=== PATIENT | female | born 1995 | race Caucasian/White ===

== ENCOUNTER 2018-08-29 10:56 | Emergency (ER) | payer MEDICAID, SELFPAY ==
[2018-08-29] VITALS (34 sets, daily range): BP systolic 103–136; BP diastolic 48–75; PULSE 59–95; RESP 9–18; TEMP 36.5; O2SAT 95–100
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
[2018-08-29] MEDS: Normal Saline 1,000 ML 1000 ML IV (12:00)
[2018-08-29 12:02] LABS: Abs Immature Grans 0.15 k/cumm (0.0-0.09); Absolute Basophil Count 0.02 k/cumm (0.0-0.2); Absolute Eosinophil Count 0.08 k/cumm (0.0-0.7); Absolute Lymphocyte Count 0.88 k/cumm (1.2-3.4); Absolute Monocyte Count 1.38 k/cumm (0.11-0.7); Absolute Neutrophil Count 17.42 k/cumm (1.2-6.7); Basophils % 0.1; Eosinophils % 0.4; HCT 41.9 % (36.0-46.0); HGB 14.4 g/dL (12.0-15.5); Immature Grans % 0.8; Lymphocytes % 4.4; Mean Corp. HGB Concentration 34.4 g/dL (32.0-36.0); Mean Corpuscular Hemoglobin 29.1 pg (27.0-33.0); Mean Corpuscular Volume 84.8 fL (80-95); Mean Platelet Volume 10.5 fL (8.0-11.0); Monocytes % 6.9; Neutrophils % 87.4; Platelet Count 209 x1000/uL (130-400); RBC 4.94 m/cumm (4.00-5.20); RBC Distribution Width 13.4 % (11.7-14.6); White Blood Cell Count 19.93 k/cumm (4.4-10.8)
[2018-08-29] MEDS: fentaNYL 100 MCG/2 ML VIAL 50 MCG IVP (12:15)
[2018-08-29 12:20] LABS: ALT 38 U/L (12-78); AST 37 U/L (15-37); Albumin 4.1 g/dL (3.4-5.0); Alkaline Phosphatase 76 U/L (46-116); Anion Gap 9.9 mmol/L (3-11); BUN 8 mg/dL (7-18); Bilirubin, Total 0.6 mg/dL (0.2-1.0); CO2 27.1 mmol/L (21.0-32.0); CREATININE 0.68 mg/dL (0.55-1.02); Calcium 9.1 mg/dL (8.5-10.1); Chloride 103 mmol/L (98-107); Glucose 89 mg/dL (70-100); Magnesium 1.7 mg/dL (1.8-2.4); Potassium 3.3 mmol/L (3.5-5.1); Sodium 140 mmol/L (136-145)
[2018-08-29 12:21] LABS: Troponin I < 0.02 ng/mL (0.00-0.06)
[2018-08-29] MEDS: Ondansetron 4 MG/2 ML VIAL (12:45)
[2018-08-29] MEDS: Omnipaque 350 MG/ML 100 ML BTL IJ (14:03)
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
--- NOTE | 2018-08-29 14:31 | NUR.NOTE ---
Pt. returned from CT scan, pt. noted to have removed her own CCollar, put back on by this RN and BLADO Sandoval. Pt. states pain and nausea are improved.
--- NOTE | 2018-08-29 14:35 | NUR.NOTE ---
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 Pt. is A/O x4, PERRLA, moving all extremities equal with equal strength and sensation.
--- NOTE | 2018-08-29 15:17 | NUR.NOTE ---
Pt. currently on bed lewis, tolerated well.
--- NOTE | 2018-08-29 15:28 | NUR.NOTE ---
Pt. transferred to [facility] at this time. Cervical remains in place, pt. remains neurological intact.
== END 2018-08-29 15:52 | disposition short-term general hospital (02) ==
PROVIDERS: Emergency Provider Physician Assistant
DX: S06.5X0A Traumatic subdural hemorrhage without loss of consciousness, initial encounter (principal); V43.52XA Car driver injured in collision with other type car in traffic accident, initial encounter; M25.561 Pain in right knee; S32.10XA Unspecified fracture of sacrum, initial encounter for closed fracture; S32.592A Other specified fracture of left pubis, initial encounter for closed fracture; S32.111A Minimally displaced Zone I fracture of sacrum, initial encounter for closed fracture; S80.01XA Contusion of right knee, initial encounter; S40.012A Contusion of left shoulder, initial encounter
CPT/HCPCS: 36415; 36416; 74177; 80053; 81025; 96361; 96374; 96375; 99285; 70450; 71260; 72125; 73564; 83735; 84484; 85025; J2405; J3010; J3490

== ENCOUNTER 2018-10-03 00:48 | Outpatient (CLI) | payer MEDICAID, SELFPAY ==
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
== END 2018-10-03 01:08 ==
PROVIDERS: PCP Family Medicine; Visit Provider Neurological Surgery
DX: S06.5X9D Traumatic subdural hemorrhage with loss of consciousness of unspecified duration, subsequent encounter (principal); G93.0 Cerebral cysts; J34.1 Cyst and mucocele of nose and nasal sinus
CPT/HCPCS: 70450

== ENCOUNTER 2018-11-07 15:09 | Outpatient (REF) | payer MEDICAID, SELFPAY ==
--- NOTE | 2018-11-07 14:45 | PAPFT_PTH ---
PATIENT: Aline Manley LOC: [facility] U#:[id number] AGE/SX: 23/F ROOM: RE11/07/[address]: SHARYN Ramirez : 1995 BED: DIS: 11/07/2018 SPEC #: [id number] RECD: 11/07/18 17:02 STATUS: [facility] VENTURA #: [id number] DERRELL: 11/07/18 14:[address]: Jacqueline Watkins DEPT: [facility] Cytology RECD BY: Brittany Vera ENTERED: 11/07/18 17:02 SP TYPE: PAPFT OTHR DR: Milagros Solorzano MD Tissues: 1 - CX/ENDOCX FOR PAP SMEARS Procedures: PAP THIN PREP/UVM Screening Comments: [id number]
== END 2018-11-07 15:29 ==
LOC: LBN 15:09
PROVIDERS: PCP Family Medicine; Visit Provider Nurse Practitioner Family
DX: Z12.4 Encounter for screening for malignant neoplasm of cervix (principal)
CPT/HCPCS: 88142

== ENCOUNTER 2019-10-02 20:02 | Emergency (ER) | payer MEDICAID, SELFPAY ==
[2019-10-02 20:07] VITALS: BP 130/62; PULSE 93; RESP 18; TEMP 36.7; O2SAT 97
--- NOTE | 2019-10-02 20:16 | W.ED.GENAD ---
Discharge Plan Disposition Patient Disposition: HOME Condition: Stable Discharge Details Chief Complaint: RespSymp Clinical Impression: Acute right otitis media Primary Care Provider: Milagros Solorzano ED Provider: Markell Woodruff Home Meds and New Rx's Prescriptions: New amoxicillin 500 mg tablet 500 mg PO BID Qty: 20 RF: 0 Continued etonogestrel-ethinyl estradiol [NuvaRing] 0.12-0.015 mg/24 hr ring 1 vag ring VG monthly Qty: 3 RF: 3 loratadine [Claritin] 10 mg tablet 10 mg PO DAILY PRNRF: 0 Discharge Instructions Instructions: Otitis Media (ED) Additional Instructions: if your symptoms are not improving by this week see your primary care provider take 600mg ibuprofen and 650mg tylenol every 6 hours for pain as needed if you feel more ill, have persistent high fevers or difficulty breathing return to the emergency department Stand Alone Forms: Work Release Medical Decision Making 24 yo female comes in with 2 days of sinus congestion, throat pain and right ear pain. Denies fevers, cough, dyspnea, recent travel, vomit, chest pain, abd pain, n/v. She is in no distress on exam with clear rhinorrhea, normal oropharynx, midline uvula with no pain over hyoid or restricted neck movements. Her left tm is normal but her right tm is red and bulging. Will start her on treatment for acute otitis media and advised to f/u with pcp if not better this week and return precautions given Differential Diagnosis Differential Diagnosis: uri, sinusitis, pharyngitis, aom HPI General Mode of arrival: ambulatory. Date/Time Provider Initiated Documentation: 10/02/19 20:12. Limitations to Documentation: no limitations. Information obtained by: patient. History of Present Illness 24 year old F presents to the emergency department with the chief complaint of ear pain, described as moderate, Quality is described as aching, Patient started experiencing this day(s) (2) and it has been constant. No relieving factors improve symptom(s), No exacerbating factors reported . Patient did receive the following treatments prior to arrival, none Related Data Home Medications Medication Instructions Recorded Confirmed etonogestrel 0.12 mg-ethinyl 1 vag ring VG monthly #3 each 11/07/18 10/02/19 estradiol 0.015 mg/24 hr vaginal ring amoxicillin 500 mg PO BID #20 tab 10/02/19 loratadine [Claritin] 10 mg PO DAILY PRN 10/02/19 10/02/19 Previous Rx's Medication Instructions Recorded etonogestrel 0.12 mg-ethinyl 1 vag ring VG monthly #3 each 11/07/18 estradiol 0.015 mg/24 hr vaginal ring amoxicillin 500 mg PO BID #20 tab 10/02/19 Allergies Allergy/AdvReac Type Severity Reaction Status Date / Time milk AdvReac upset Unverified 10/02/19 20:11 stomache latvian spring soap Allergy Intermediate Hives Uncoded 10/02/19 20:11 dial soap Allergy Skin Rash Uncoded 10/02/19 20:11 environmental Allergy runny Uncoded 10/02/19 20:11 nose/itching eyes General Stated Complaint: RespSymp TELMA: 4 Review of Systems All systems reviewed & are unremarkable except as noted in HPI and below Constitutional Constitutional: Denies fever(s) and Denies weakness Cardiovascular Cardiovascular: Denies dyspnea Respiratory Respiratory: Denies cough and Denies dyspnea Gastrointestinal Gastrointestinal: Denies abdominal pain, Denies nausea and Denies vomiting Musculoskeletal Musculoskeletal: Denies joint swelling Neurologic Neurologic: Denies weakness [facility] Social History Smoking/Tobacco Use Status: Former Tobacco Use Smokeless tobacco user: other (vap) Quit status: not considering quitting Counseling given: patient declined Alcohol Intake: current Alcohol Intake frequency: holidays/special occasions only Drug use: Occasionally Substance use type: marijuana Counseling given: No Do you feel safe at home: Yes Do you feel safe in your relationship?: Yes Exam Const General: no acute distress Orientation: alert HENMT Head: normal to inspection Ears: external ears normal General nose exam: external nose normal Mouth: moist mucous membranes Eyes General: appearance normal, both eyes and all related structures Neck Neck: normal visual inspection Resp Effort & Inspection: normal respiratory effort and able to speak in complete sentences Cardio Rate: regular rate Skin General skin exam: no rashes or lesions noted Neuro General: alert and oriented x3 Extrem General: normal to inspection Psych Mental Status: mental status grossly normal Course Vital Signs Vital signs: Vital Signs Temperature 36.7 C 10/02/19 20:07 Pulse 93 H 10/02/19 20:07 Respiratory Rate 18 10/02/19 20:07 Blood Pressure 130/62 10/02/19 20:07 Pulse Oximetry 97 10/02/19 20:07 Temperature 36.7 C 10/02/19 20:07 Temperature Source Skin 10/02/19 20:07 Pulse 93 H 10/02/19 20:07 Respiratory Rate 18 10/02/19 20:07 Respiratory Effort Non-Labored 10/02/19 20:10 Respiratory Depth Normal 10/02/19 20:10 Blood Pressure 130/62 10/02/19 20:07 Blood Pressure Position Sitting 10/02/19 20:07 Pulse Oximetry 97 10/02/19 20:07 Oxygen Delivery Method Room Air 10/02/19 20:07 Oxygen Flow Rate 0 10/02/19 20:07 Pain Level 4 10/02/19 20:07
[2019-10-02] MEDS: Amoxicillin 500 MG CAP PO (20:21)
== END 2019-10-02 20:30 | disposition home or self-care (01) ==
PROVIDERS: Emergency Provider Emergency Medicine; PCP Family Medicine
DX: H66.91 Otitis media, unspecified, right ear (principal)
CPT/HCPCS: 99283

== ENCOUNTER 2022-03-02 15:44 | Outpatient (REF) | payer MEDICAID, SELFPAY ==
--- NOTE | 2022-03-02 15:00 | PAPFT_PTH ---
PATIENT: Aline Manley LOC: [facility] U#:[id number] AGE/SX: 27/F ROOM: RE03/02/[address]: SHARYN Ramirez : 1995 BED: DIS: 03/02/2022 SPEC #: [id number] RECD: 03/02/22 16:50 STATUS: [facility]AN RENina #: [id number] DERRELL: 03/02/22 15:[address]: Jacqueline Watkins DEPT: [facility] Cytology RECD BY: Brittany Vear ENTERED: 03/02/22 16:50 SP TYPE: PAPFT FIDELIA DR: Jesica Hidalgo APRN Tissues: 1 - CX/ENDOCX FOR PAP SMEARS Procedures: PAP THIN PREP/UVM Screening Comments: [id number]
[2022-03-05 19:18] LABS: Chlamydia Result Negative (Negative); GC Result Negative (Negative)
== END 2022-03-02 15:45 | disposition home or self-care (01) ==
LOC: LBN 15:44
PROVIDERS: Visit Provider Nurse Practitioner Family
DX: Z11.3 Encounter for screening for infections with a predominantly sexual mode of transmission (principal); Z12.4 Encounter for screening for malignant neoplasm of cervix
CPT/HCPCS: 87491; 87591; 88142

== ENCOUNTER 2022-05-26 15:02 | Emergency (ER) | payer MEDICAID, SELFPAY ==
[2022-05-26 15:42] VITALS: BP 117/63; PULSE 68; TEMP 36.7; O2SAT 99
--- NOTE | 2022-05-26 15:53 | ED.GENADUL_ITS ---
Discharge Plan Disposition Patient Disposition: HOME Condition: Good Discharge Details Clinical Impression: Acute foot pain Primary Care Provider: Jesica Hidalgo ED Provider: Anitha Sandoval Home Meds and New Rx's Prescriptions: Continued pren vit comb.1-iron cb-FA-DSS 90-1-50 mg Tablet PO acetaminophen 325 mg Tablet 650 mg PO PRN PRN loratadine [Claritin] 10 mg tablet 10 mg PO DAILY PRN Discharge Instructions Instructions: Arthralgia (ED) Additional Instructions: Your exam is reassuring here today. Concerned this could be sprain or irritation from your shoe. Please try to wear shoes that do not rub on this area. Encourage rest, ice, elevation. Tylenol and/or Ibuprofen as needed for discomfort. Please follow up with primary care in 2 weeks for reevaluation. If you develop fevers/chills, increased pain, redness, numbness or other new/worsening symptoms please seek care urgently once again. Stand Alone Forms: Work Release Referrals: Jesica Hidalgo, DOMESTIC HOUSEKEEPER [Primary Care Provider] - Discharge Data Discharge Date/Time-TO BE ENTERED AT DEPARTURE: 05/26/22 16:36 Medical Decision Making Patient is a pleasant 27 year old female presenting today with c/c of right foot pain. States pain began 2 days ago after long hours on her feet at work. 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 Denies trauma. Did not fall or drop anything on the foot. STates that she sprained this foot about 10 years ago, is wondering if it could be arthritis. Also reports that she has been wearing [employer]ko shoes which may be contriburing. Denies radiation of pain. No fevers/chills. No N/T. On exam, patient appears nontoxic. Exam of RLE reveals it to be neurovascularly intact. No objective evidence of trauma. No swelling or discoloration. Patient felt that there was an area of ecchymosis but this looks the same as contralateral side, pt is quite pale and vacular markings are easily identified. She is point tender at the proximal, lateral aspect of the foot, indicating a 1cm area at the distal aspect of the ATFL. FUll ROM of foot, toes, ankle. No calf pain. No midfoot pain. No pain over the proximal 5th metatarsal. With no recent trauma and no worrisome findings on PE, I advised that she likely has recurrent sprain or irritation from her shoe. Encouraged RICE, NSAID, APAP. Will give work note at patient request. Advised f/u with PCP in 2 wks for reevaluation. We discussed imaging but as she does not have hx or PE findings to suggest fx or dislocation, will hold off for now, which patient is in agreement with. Return precautions discussed. All of her questions and concerns were addressed, she is in agreement with this plan. HPI General Date/Time Provider Initiated Documentation: 05/26/22 15:53 . Limitations to Documentation: no limitations . Information obtained by: patient and RN notes reviewed . History of Present Illness 27 year old F presents to the emergency department with the chief complaint of right foot pain, described as moderate, with intensity rated at 5. Quality is described as aching, and is localized to the right and lower extremity. Patient started experiencing this day(s) and it has been constant. Immobilization improves symptom(s), Movement worsens symptoms . Patient notes no other symptoms.. Patient did receive the following treatments prior to arrival, none Related Data Home Medications Medication Instructions Recorded Confirmed loratadine 10 mg tablet (Claritin) 10 mg PO DAILY PRN 10/02/19 05/26/22 acetaminophen 325 mg tablet 650 mg PO PRN PRN 05/26/22 05/26/22 pren vit comb.1-iron cb-FA-DSS 90 tab PO 05/26/22 mg-1 mg-50 mg tablet Allergies Allergy/AdvReac Type Severity Reaction Status Date / Time milk AdvReac upset Verified 05/26/22 15:46 stomache pinky spring soap Allergy Intermediate Hives Uncoded 05/26/22 15:46 dial soap Allergy Skin Rash Uncoded 05/26/22 15:46 environmental Allergy runny Uncoded 05/26/22 15:46 nose/itching eyes General Stated Complaint: Orthopedic TELMA: 4 Review of Systems Constitutional Constitutional: Reports as per HPI, Denies fever(s) and Denies weakness Cardiovascular Cardiovascular: Reports as per HPI Respiratory Respiratory: Reports as per HPI Musculoskeletal Musculoskeletal: Reports as per HPI and Denies tingling Integumentary/Breasts Skin/Breast: Reports as per HPI, Denies rash and Denies wounds Neurologic Neurologic: Reports as per HPI, Denies tingling, Denies paresthesias and Denies weakness PFSH All Active Problems (Updated 05/26/22 @ 16:06 by BALDO Holly) Acute foot pain (Acute) Chronic pain syndrome (Chronic) Allergic rhinitis, unspecified (Acute) Attention deficit hyperactivity disorder, combined type (Acute) Contraception (Acute 11/13/16) Idiopathic scoliosis (Acute) Family History Mother ADHD Social History Smoking/Tobacco Use Status: Former Tobacco Use Smokeless tobacco user: other (vap) Quit status: not considering quitting Counseling given: patient declined Smoking risk assessment performed?: Yes Alcohol Intake: current Alcohol Intake frequency: holidays/special occasions only Drug use: Occasionally Substance use type: marijuana Counseling given: No Do you feel safe at home: Yes Do you feel safe in your relationship?: Yes Exam Const General: cooperative, healthy appearing, comfortable, no acute distress, well developed and well groomed Nutritional Appearance: average body habitus and well nourished Orientation: alert and awake Resp Effort & Inspection: normal respiratory effort, able to speak in complete sentences and no respiratory distress Cardio Rate: regular rate Rhythm: regular rhythm Skin General skin exam: no rashes or lesions noted Lesions: no lesions Rashes: no rashes Trauma: no lacerations or abrasions Neuro General: patient alert and patient awake Cognition: normal cognition Speech: speech normal Gait: normal gait Motor: muscle tone normal throughout Sensory Exam: no sensory deficits noted Extrem Ankle/foot/toe images: 1. Area of discomfort. No objective swelling, discoloration, deformity, erythema, warmth, fluctuance. Full ROM. 2+ distal pulses. Senstaion intact. Pain focally over this area. No pain over the 5th metatarsal. No pain overe lateral malleolus. No midfoot pain. No pain over proximal fibula. No LE edema, palpable cord or calf pain, Psych Appearance: grossly normal and well kempt Mental Status: mental status grossly normal Speech and Movement: speech and movement normal Course Vital Signs Vital signs: Vital Signs Temperature 36.7 C 05/26/22 15:42 Pulse 68 05/26/22 15:42 Blood Pressure 117/63 05/26/22 15:42 Pulse Oximetry 99 05/26/22 15:42 Temperature 36.7 C 05/26/22 15:42 Temperature Source Tympanic 05/26/22 15:42 Pulse 68 05/26/22 15:42 Blood Pressure 117/63 05/26/22 15:42 Blood Pressure Position Sitting 05/26/22 15:42 Pulse Oximetry 99 05/26/22 15:42 Oxygen Delivery Method Room Air 05/26/22 15:42 Oxygen Flow Rate 0 05/26/22 15:42 Pain Level 5 05/26/22 15:42
== END 2022-05-26 16:36 | disposition home or self-care (01) ==
PROVIDERS: Emergency Provider Physician Assistant
DX: M79.671 Pain in right foot (principal); Z87.891 Personal history of nicotine dependence
CPT/HCPCS: 99281; 99282

== ENCOUNTER 2023-01-09 18:36 | Emergency (ER) | payer MEDICAID, SELFPAY ==
[2023-01-09 18:39] VITALS: PULSE 67; RESP 18; TEMP 37.2; O2SAT 100
[2023-01-09 18:44] VITALS: BP 119/82
--- NOTE | 2023-01-09 18:45 | DI.RAD_ITS ---
Exam(s) XR ELBOW LT COMPLETE EXAM: XR ELBOW LT COMPLETE CLINICAL HISTORY: fall. TECHNIQUE: 2D digital imaging was performed of the left elbow. Three images were obtained. AP, lat eral and oblique views were obtained. COMPARISON: No exams were available for comparison FINDINGS: BONES: No acute fracture is present. No bony destructive lesion is seen. JOINTS: The elbow is normally aligned. No joint effusion is seen. SOFT TISSUE: Normal. IMPRESSION: Unremarkable radiographs of the left elbow. DATA REPOSITORY: RADIATION DOSE DELIVERED:
--- NOTE | 2023-01-09 19:06 | DI.VRAD_ITS ---
PROCEDURE INFORMATION: Exam: XR Left Elbow Exam date and time: 01/09/2023 19:00 Age: 27 years old Clinical indication: Injury or trauma; Fall; Sprain or strain; Elbow; Right TECHNIQUE: Imaging protocol: Radiologic exam of the left elbow. Views: 3 or more views. COMPARISON: No relevant prior studies available. FINDINGS: Bones/joints: No acute fracture or subluxation. Soft tissues: No significant joint effusion. IMPRESSION: No acute bony pathology. Dictated and Authenticated by: Rachna Haddad MD. Ordering:DANG Cole MD
--- NOTE | 2023-01-09 19:39 | W.ED.GENAD ---
Discharge Plan Disposition Patient Disposition: Home Discharge Details Clinical Impression: Abrasion of elbow, left, Contusion of knee, left Primary Care Provider: Fred Shah ED Provider: Douglas Hanson Home Meds and New Rx's Prescriptions: Continued pren vit comb.1-iron cb-FA-DSS 90-1-50 mg Tablet PO Patient Comments: not taking acetaminophen 325 mg Tablet 650 mg PO PRN PRN loratadine [Claritin] 10 mg tablet 10 mg PO DAILY PRN Discharge Instructions Instructions: Contusion in Adults (ED), Abrasion (ED) Additional Instructions: You may continue to use [id number] pain medication as needed for discomfort. Please rest over the next couple days and increase activity as tolerated. Monitor wound for any signs of infection and return immediately if these occur otherwise follow-up with your primary care provider as needed for recheck. Stand Alone Forms: Work Release Referrals: Fred Shah, HOOP PUNCH AND COILER OPERATOR HELPER [Primary Care Provider] - (As needed for reassessment) Medical Decision Making Patient presenting to the emergency department for mechanical trip and fall with injury to left elbow and left knee. Patient denies any head injury loss of consciousness or other symptoms. Physical exam shows ecchymosis and symptoms consistent of contusion to left knee but patient is able to flex and extend knee and bear weight so I do not feel that she needs any radiological imaging of left knee. Patient does have abrasion with continued bleeding from the left elbow. Abrasion is only about 3 mm in length. Patient is able to flex and extend elbow but given that injury is directly over bony prominence will perform radiological imaging to make sure that there is no associated underlying fracture. Reviewed radiological imaging and radiologist interpretation that shows no acute findings. Did place a small amount of glue due to wound continuing to ooze but otherwise I do not feel that any other interventions are needed. After discussion of diagnosis and plan of care patient has no further needs, questions, or concerns and states clear understanding to return to the emergency department for any worsening symptoms. This documentation was generated using [employer] system, please disregard any oddities of phrase or misspellings. Imaging Data Radiologic Study: Imaging: X-Ray Radiologist's impression: Exam(s) PROCEDURE INFORMATION: Exam: XR Left Elbow Exam date and time: 01/09/2023 19:00 Age: 27 years old Clinical indication: Injury or trauma; Fall; Sprain or strain; Elbow; Right TECHNIQUE: Imaging protocol: Radiologic exam of the left elbow. Views: 3 or more views. COMPARISON: No relevant prior studies available. FINDINGS: Bones/joints: No acute fracture or subluxation. Soft tissues: No significant joint effusion. IMPRESSION: No acute bony pathology. HPI General Mode of arrival: ambulatory. Date/Time Provider Initiated Documentation: 01/09/23 18:45. Limitations to Documentation: no limitations. Information obtained by: patient and RN notes reviewed. History of Present Illness 27 year old F presents to the emergency department with the chief complaint of fall with elbow lac and knee injury, described as mild, with intensity rated at 4. Quality is described as aching, and is localized to the left, upper extremity and lower extremity. Patient started experiencing this hour(s) (6) and it has been constant. No relieving factors improve symptom(s), No exacerbating factors reported . Patient notes no other symptoms.. Patient did receive the following treatments prior to arrival, NSAID Related Data Home Medications Medication Instructions Recorded Confirmed loratadine 10 mg tablet (Claritin) 10 mg PO DAILY PRN 10/02/19 01/09/23 acetaminophen 325 mg tablet 650 mg PO PRN PRN 05/26/22 01/09/23 pren vit comb.1-iron cb-FA-DSS 90 tab PO 05/26/22 11/02/22 mg-1 mg-50 mg tablet Allergies Allergy/AdvReac Type Severity Reaction Status Date / Time milk AdvReac upset Verified 01/09/23 18:44 stomache pinky spring soap Allergy Intermediate Hives Uncoded 01/09/23 18:44 dial soap Allergy Skin Rash Uncoded 01/09/23 18:44 environmental Allergy runny Uncoded 01/09/23 18:44 nose/itching eyes General Stated Complaint: Laceration TELMA: 4 Review of Systems Constitutional Constitutional: Denies headache(s) and Denies weakness ENT Ears, Nose, Mouth, and Throat: Denies headache(s) Musculoskeletal Musculoskeletal: Reports as per HPI, Denies numbness and Denies tingling Integumentary/Breasts Skin/Breast: Reports as per HPI and Reports wounds Neurologic Neurologic: Denies headache(s), Denies numbness, Denies tingling and Denies weakness PFSH All Active Problems (Updated 01/09/23 @ 19:47 by Douglas Hanson NP) Abrasion of elbow, left (Acute) Contusion of knee, left (Acute) Chronic pain syndrome (Chronic) Allergic rhinitis, unspecified (Acute) Attention deficit hyperactivity disorder, combined type (Acute) Contraception (Acute 11/13/16) Idiopathic scoliosis (Acute) Medical History (Updated 01/09/23 @ 19:47 by Douglas Hanson NP) Attention deficit hyperactivity disorder, combined type Idiopathic scoliosis Family History Mother ADHD Social History Smoking/Tobacco Use Status: Current every day Tobacco Type: e-cigarettes Smokeless tobacco user: other (vap) Quit status: not considering quitting Counseling given: patient declined Smoking risk assessment performed?: Yes Alcohol Intake: current Alcohol Intake frequency: holidays/special occasions only Drug use: Occasionally Substance use type: marijuana Counseling given: No Do you feel safe at home: Yes Do you feel safe in your relationship?: Yes Exam Const General: cooperative, no acute distress and not ill appearing Orientation: alert, awake and oriented x3 HENMT Mouth: moist mucous membranes Resp Effort & Inspection: normal respiratory effort, able to speak in complete sentences and no respiratory distress Cardio Rate: regular rate Rhythm: regular rhythm Pulses: normal peripheral pulses Skin General skin exam: no rashes or lesions noted Neuro General: patient alert, patient awake, patient oriented x3, moves all extremities and no focal motor deficits Sensory Exam: no sensory deficits noted Extrem General: normal exam except as noted Left upper extremity: elbow/forearm Details: abnormal ROM Details: pain with active ROM, pain with passive ROM and with range as follows (full) and abrasion elbow posterior Details: single Left lower extremity: knee Details: ecchymosis knee anterior Course Vital Signs Vital signs: Vital Signs Temperature 37.2 C 01/09/23 18:39 Pulse 67 01/09/23 18:39 Respiratory Rate 18 01/09/23 18:39 Pulse Oximetry 100 01/09/23 18:39 Temperature 37.2 C 01/09/23 18:39 Temperature Source Temporal Artery Scan 01/09/23 18:39 Pulse 67 01/09/23 18:39 Respiratory Rate 18 01/09/23 18:39 Respiratory Effort Normal, Non-Labored 01/09/23 18:43 Blood Pressure 119/82 01/09/23 18:44 Pulse Oximetry 100 01/09/23 18:39 Oxygen Delivery Method Room Air 01/09/23 18:39 Oxygen Flow Rate 0 01/09/23 18:39 Pain Level 4 01/09/23 19:24 Lab/Test Results Lab/Test Results: POC- Test(urine) Negative
== END 2023-01-09 20:05 | disposition home or self-care (01) ==
PROVIDERS: Emergency Provider Nurse Practitioner Family; PCP Nurse Practitioner Family
DX: S50.312A Abrasion of left elbow, initial encounter (principal); S80.02XA Contusion of left knee, initial encounter; W01.0XXA Fall on same level from slipping, tripping and stumbling without subsequent striking against object, initial encounter; Z23 Encounter for immunization
CPT/HCPCS: 81025; 90471; 99284; 73080

== ENCOUNTER 2024-09-29 09:48 | Emergency (ER) | payer MEDICAID, SELFPAY ==
[2024-09-29 09:52] VITALS: BP 129/64; PULSE 70; RESP 18; TEMP 36.6; O2SAT 98
[2024-09-29 10:13] VITALS: BP 119/59; PULSE 63; RESP 16; O2SAT 99
[2024-09-29] MEDS: Fluconazole 150 MG TAB PO (10:20)
[2024-09-29 10:25] LABS: Bilirubin Small (Negative); Blood Large (Negative); Clarity Cloudy (Clear); Glucose Negative (Negative); Ketones Trace mg/dL (Negative); Leukocyte Esterase Large (Negative); Nitrite Positive (Negative); Specific Gravity >= 1.030 (1.005-1.025); pH 5.5 (5-8)
--- NOTE | 2024-09-29 10:35 | ED.GENADUL_ITS ---
Discharge Plan Disposition Patient Disposition: Home Condition: Stable Discharge Details Clinical Impression: Urinary tract infection, Vaginal yeast infection Primary Care Provider: Fred Shah ED Provider: Concepción Galaviz Home Meds and New Rx's Prescriptions: New nitrofurantoin monohyd/m-cryst [Macrobid] 100 mg capsule 100 mg PO Q12H 5 Days Qty: 10 0RF Rx Instructions: must administer with a meal/food No Action pren vit comb.1-iron cb-FA-DSS 90-1-50 mg Tablet PO Patient Comments: not taking acetaminophen 325 mg Tablet 650 mg PO PRN PRN loratadine [Claritin] 10 mg tablet 10 mg PO DAILY PRN Discharge Instructions Instructions: Urinary Tract Infection, Adult ED Additional Instructions: You were seen in the emergency department today for evaluation of pain when you pee and were found to have a urinary tract infection. You also received a dose of antifungal medications for a yeast infection. Please take all the antibiotic until it is gone, even if you start to feel better. Please follow-up with your primary care provider in the next few days to discuss this visit and any symptoms that change, worsen, or persist. Thank you for allowing us to be part of your care. Stand Alone Forms: Work Release HPI General Mode of arrival: ambulatory . Date/Time Provider Initiated Documentation: 09/29/24 10:00 . Limitations to Documentation: no limitations . Information obtained by: patient and old records reviewed . HPI Narrative: HPI: This is a 29-year-old female patient presenting for evaluation of dysuria. The patient reports that 2 days ago she began to have pain when she peed, noted some hematuria and urinary frequency. She reports that she has had a UTI in the past, though has not taken antibiotics for several years. She reports that this feels similar. Denies abdominal pain, flank pain, fever, chills, nausea or vomiting. She states that she does have a vaginal yeast infection, which she has had frequently. She has no other vaginal discharge or bleeding that she is concerned about, and has been with the same sexual partner for the last 11 years and has a low concern for STIs. She reports that she is unable to get , is not sure why she was told [place] [facility] [place] but does not use any other means to prevent . This is an isolated complaint and the patient is otherwise in her normal state of health, tolerating oral intake. Exam: Gen: Awake and alert, in no apparent distress HEENT: Non-icteric sclera Neck: Supple Lungs: No apparent respiratory distress, normal respiratory effort. CV: Appears well perfused Abdomen: Non-distended, soft, nontender MSK: Moves 4 extremities without apparent limitation in ROM Skin: Visualized skin without rashes, cyanosis. Neuro: Normal Gait, no obvious focal deficits or facial asymmetry. Speaks in full, clear sentences. Psych: Appropriate for situation. MDM: This is a 29-year-old female patient presenting for evaluation of dysuria. Differential includes but is not limited to urinary tract infection, most likely simple cystitis as the patient has no systemic symptoms to significantly increase my concern for pyelonephritis. Considered nephrolithiasis, as well as vaginitis/vaginosis. I considered ectopic and other related concerns. We will obtain a urinalysis and urine screen. I did provide the patient with a dose of diclofenac for treatment of her candidal vulvovaginitis. She is not desiring of any STI checks at this time. ED Course: Urinalysis positive for urinary tract infection with pyuria, blood, nitrite positive, and large leukocyte esterase. This was sent for culture and I sent a prescription for 5 days of Macrobid to her pharmacy. [id number] test was negative. Exam most concerning for simple cystitis, and at this time, the patient has had a full medical evaluation and is safe for discharge to home. They are hemodynamically stable, ambulatory, and tolerating PO. They are understanding of the follow-up plan and return precautions. They left our facility without incident. Concepción Galaviz MD Related Data Home Medications ?Medication ?Instructions ?Recorded ?Confirmed loratadine 10 mg tablet (Claritin) 10 mg PO DAILY PRN 10/02/19 09/29/24 acetaminophen 325 mg tablet 650 mg PO PRN PRN 05/26/22 09/29/24 pren vit comb.1-iron cb-FA-DSS 90 tab PO 05/26/22 11/02/22 mg-1 mg-50 mg tablet nitrofurantoin 100 mg PO Q12H 5 days #10 caps 09/29/24 monohydrate/macrocrystals 100 mg capsule (Macrobid) Previous Rx's ?Medication ?Instructions ?Recorded nitrofurantoin 100 mg PO Q12H 5 days #10 caps 09/29/24 monohydrate/macrocrystals 100 mg capsule (Macrobid) Allergies Allergy/AdvReac Type Severity Reaction Status Date / Time milk AdvReac upset Verified 09/29/24 09:59 stomache [place] spring soap Allergy Intermediate Hives Uncoded 09/29/24 09:59 dial soap Allergy Skin Rash Uncoded 09/29/24 09:59 environmental Allergy runny Uncoded 09/29/24 09:59 nose/itching eyes General Stated Complaint: Urinary TELMA: 4 Course Vital Signs Vital signs: Vital Signs Temperature 36.6 C 09/29/24 09:52 Pulse 70 09/29/24 09:52 Respiratory Rate 18 09/29/24 09:52 Blood Pressure 129/64 09/29/24 09:52 Pulse Oximetry 98 09/29/24 09:52 Temperature 36.6 C 09/29/24 09:52 Temperature Source Oral 09/29/24 09:52 Pulse 63 09/29/24 10:13 Respiratory Rate 16 09/29/24 10:13 Blood Pressure 119/59 L 09/29/24 10:13 Blood Pressure Position Sitting 09/29/24 09:52 Pulse Oximetry 99 09/29/24 10:13 Oxygen Delivery Method Room Air 09/29/24 10:13 Oxygen Flow Rate 0 09/29/24 09:52 Pain Level 0 09/29/24 10:11 Lab/Test Results Lab/Test Results: Laboratory Tests Range/Units 09/29/24 10:05 Urine Color (Yellow) Yellow Urine Clarity (Clear) Cloudy Urine pH (5-8) 5.5 Ur Specific [place] (1.005-1.025) >= 1.030 H Urine Protein (Neg-Trace) mg/dL >=300 H Urine Ketones (Negative) mg/dL Trace H Urine Blood (Negative) Large H Urine Nitrite (Negative) Positive H Urine Bilirubin (Negative) Small H Urine Urobilinogen (Up to 0.2) mg/dL 1.0 H Ur Leukocyte Esterase (Negative) Large H Urine Glucose (Negative) mg/dL Negative POC- Test(urine) Negative Medical Decision Making Quality:SDOH Health Related Social Needs: No Data to Display PFSH All Active Problems (Updated 09/29/24 @ 10:35 by Concepción Galaviz MD) Vaginal yeast infection (Acute) Urinary tract infection (Acute) Chronic pain syndrome (Chronic) Allergic rhinitis, unspecified (Acute) Attention deficit hyperactivity disorder, combined type (Acute) Contraception (Acute 11/13/16) Idiopathic scoliosis (Acute) Medical History (Updated 09/29/24 @ 10:35 by Concepción Galaviz MD) Idiopathic scoliosis Attention deficit hyperactivity disorder, combined type Family History Mother ADHD Social History Smoking/Tobacco Use Status: Current every day Tobacco Type: e-cigarettes Smokeless tobacco user: other (vap) Quit status: not considering quitting Counseling given: patient declined Smoking risk assessment performed?: Yes Alcohol Intake: current Alcohol Intake frequency: holidays/special occasions only Drug use: Daily Substance use type: marijuana Counseling given: No Housing: house Do you feel safe at home: Yes Do you feel safe in your relationship?: Yes
[2024-09-29 10:36] LABS: C & S Indicated? Yes; RBC >50 HPF (0-2); WBC >50 HPF (0-5)
== END 2024-09-29 10:46 | disposition home or self-care (01) ==
LOC: ER 10:51
PROVIDERS: Emergency Provider Emergency Medicine; PCP Nurse Practitioner Family
DX: R30.0 Dysuria (principal); N39.0 Urinary tract infection, site not specified; B37.31 Acute candidiasis of vulva and vagina; F17.290 Nicotine dependence, other tobacco product, uncomplicated
CPT/HCPCS: 81025; 87077; 99283; 81003; 81015; 87086; 87186

== ENCOUNTER 2024-11-29 14:13 | Emergency (ER) | payer MEDICAID, SELFPAY ==
[2024-11-29 14:23] VITALS: BP 125/82; PULSE 74; RESP 16; TEMP 36.7; O2SAT 99
--- NOTE | 2024-11-29 15:06 | W.ED.GENAD ---
Discharge Plan Disposition Patient Disposition: Home Condition: Stable Discharge Details Clinical Impression: Upper respiratory infection Primary Care Provider: Fred Shah ED Provider: Brittany Serna Home Meds and New Rx's Prescriptions: New albuterol sulfate 90 mcg/actuation HFA aerosol inhaler 2 puff inhalation Q6H PRNQty: 6.7 0RF (DME) Space Chamber Spacer See Rx Instructions .Route Qty: 1 0RF Rx Instructions: As directed methylprednisolone [Medrol (Meng)] 4 mg tablets,dose pack See Rx Instructions .ROUTE .COMPLEX Qty: 21 0RF Rx Instructions: for 6 days Continued acetaminophen 325 mg Tablet 650 mg PO PRN PRN loratadine [Claritin] 10 mg tablet 10 mg PO DAILY PRN Discharge Instructions Instructions: Upper Respiratory Infection ED Additional Instructions: Purchase Afrin nasal spray and use as as needed for no more than 3 days consecutively Motrin and Tylenol per package instructions for symptoms Flonase daily for 2 weeks Medrol Dosepak as prescribed Use inhaler 2 puffs every 4-6 hours with spacer as needed for cough, wheeze, shortness of breath Stand Alone Forms: Work Release Referrals: Fred Shah, [employer] [Primary Care Provider] - 1 week HPI General Date/Time Provider Initiated Documentation: 11/29/24 14:28. HPI Narrative: This 29-year-old female presents with report of upper respiratory symptoms, fatigue, states that she feels very congested and despite taking cold medications. Denies chance of smokes tobacco via vape. Denies any significant shortness of breath but has had productive cough per patient. Has had chills without fever. Related Data Home Medications ?Medication ?Instructions ?Recorded ?Confirmed loratadine 10 mg tablet (Claritin) 10 mg PO DAILY PRN 10/02/19 11/29/24 acetaminophen 325 mg tablet 650 mg PO PRN PRN 05/26/22 11/29/24 albuterol sulfate 90 mcg/actuation 2 puff inhalation Q6H PRN #6.7 11/29/24 aerosol inhaler grams inhalational spacing device (Space #1 ea 11/29/24 Chamber) methylprednisolone 4 mg tablets in See Rx Instructions PO .COMPLEX 11/29/24 a dose pack (Medrol (Meng)) #21 dose pk Previous Rx's ?Medication ?Instructions ?Recorded albuterol sulfate 90 mcg/actuation 2 puff inhalation Q6H PRN #6.7 11/29/24 aerosol inhaler grams inhalational spacing device (Space #1 ea 11/29/24 Chamber) methylprednisolone 4 mg tablets in See Rx Instructions PO .COMPLEX 11/29/24 a dose pack (Medrol (Meng)) #21 dose pk Allergies Allergy/AdvReac Type Severity Reaction Status Date / Time milk AdvReac upset Verified 11/29/24 14:26 stomache pinky spring soap Allergy Intermediate Hives Uncoded 11/29/24 14:26 dial soap Allergy Skin Rash Uncoded 11/29/24 14:26 environmental Allergy runny Uncoded 11/29/24 14:26 nose/itching eyes General Stated Complaint: RespSymp TELMA: 4 Exam Narrative Exam Narrative: 29-year-old female in no acute distress TMs clear bilaterally lungs clear to auscultation speaking in complete sentences no sinus tenderness nontoxic Course Vital Signs Vital signs: Vital Signs Temperature 36.7 C 11/29/24 14:23 Pulse 74 11/29/24 14:23 Respiratory Rate 16 11/29/24 14:23 Blood Pressure 125/82 11/29/24 14:23 Pulse Oximetry 99 11/29/24 14:23 Temperature 36.7 C 11/29/24 14:23 Temperature Source Oral 11/29/24 14:23 Pulse 74 11/29/24 14:23 Respiratory Rate 16 11/29/24 14:23 Respiratory Effort Normal 11/29/24 15:03 Respiratory Depth Normal 11/29/24 15:03 Blood Pressure 125/82 11/29/24 14:23 Blood Pressure Position Sitting 11/29/24 14:23 Pulse Oximetry 99 11/29/24 14:23 Oxygen Delivery Method Room Air 11/29/24 14:23 Oxygen Flow Rate 0 11/29/24 14:23 Pain Level 0 11/29/24 15:03 Medical Decision Making 29-year-old female presenting in no acute distress, vital stable. 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 She is encouraged to be reevaluated in 1 week with persistent symptoms and when to return earlier should she have new or worsening complaints Quality:SDOH Health Related Social Needs: No Data to Display PFSH All Active Problems (Updated 11/29/24 @ 15:12 by BALDO Palmer) Upper respiratory infection (Acute) Chronic pain syndrome (Chronic) Allergic rhinitis, unspecified (Acute) Attention deficit hyperactivity disorder, combined type (Acute) Contraception (Acute 11/13/16) Idiopathic scoliosis (Acute) Medical History (Updated 11/29/24 @ 15:12 by BALDO Palmer) Idiopathic scoliosis Attention deficit hyperactivity disorder, combined type Family History Mother ADHD Social History Smoking/Tobacco Use Status: Current every day Tobacco Type: e-cigarettes Smokeless tobacco user: other (vap) Quit status: not considering quitting Counseling given: patient declined Smoking risk assessment performed?: Yes Alcohol Intake: current Alcohol Intake frequency: holidays/special occasions only Drug use: Daily Substance use type: marijuana Counseling given: No Housing: house Do you feel safe at home: Yes Do you feel safe in your relationship?: Yes
[2024-11-29 15:26] VITALS: BP 113/76; PULSE 64; RESP 18; TEMP 36.6; O2SAT 98
== END 2024-11-29 15:29 | disposition home or self-care (01) ==
PROVIDERS: Emergency Provider Physician Assistant; PCP Nurse Practitioner Family
DX: J06.9 Acute upper respiratory infection, unspecified (principal); F17.290 Nicotine dependence, other tobacco product, uncomplicated
CPT/HCPCS: 99283

== ENCOUNTER 2025-07-19 13:48 | Outpatient (REF) | payer MEDICAID, SELFPAY ==
[2025-07-19 16:54] LABS: Glucose Negative (Negative)
[2025-07-19 17:04] LABS: RBC 20-50 HPF (0-2); WBC 20-50 HPF (0-5)
== END 2025-07-19 13:49 | disposition home or self-care (01) ==
LOC: LBN 13:48
PROVIDERS: PCP Nurse Practitioner Family; Visit Provider Nurse Practitioner Family
DX: R39.9 Unspecified symptoms and signs involving the genitourinary system (principal); B96.29 Other Escherichia coli [E. coli] as the cause of diseases classified elsewhere
CPT/HCPCS: 81003; 81015